=== PATIENT | female | born 1970 | race Caucasian/White ===

== ENCOUNTER → 2016-07-02 | Outpatient (CLI) | payer BC ==
[~2016-07-02] MED LIST: ACETAMINOPHEN-1 EAC1 PO; DIOVAN 80 MG TA80 M1 PO; LIPITOR 20 MG T20 M1 PO; NORCO 5-325 TA1 EACH PO; ZOLOFT25 MG PO
== END ==
LOC: RAD 14:17
DX: N63 Unspecified lump in breast (principal); M79.89 Other specified soft tissue disorders

== ENCOUNTER → 2017-08-18 | Outpatient (CLI) | payer BC ==
[~2017-08-18] MED LIST changes: +DIOVAN160 MG PO; +LUNESTA2 MG PO; +MEDROLDOSEPACK PO; +VITAMIN D1000 UNI2 PO
== END ==
LOC: RAD 10:37
DX: Z12.31 Encounter for screening mammogram for malignant neoplasm of breast (principal)

== ENCOUNTER → 2018-03-07 | Outpatient (CLI) | payer BC ==
[~2018-03-07] MED LIST changes: -DIOVAN160 MG PO; -LUNESTA2 MG PO; -MEDROLDOSEPACK PO; -VITAMIN D1000 UNI2 PO
== END ==
LOC: RAD 14:02
DX: M53.3 Sacrococcygeal disorders, not elsewhere classified (principal); I10 Essential (primary) hypertension

== ENCOUNTER → 2018-03-10 | Outpatient (CLI) | payer BC | LOC: ULTRA 15:26 | DX: N88.8 Other specified noninflammatory disorders of cervix uteri (principal); I10 Essential (primary) hypertension ==

== ENCOUNTER → 2018-04-08 | Outpatient (CLI) | payer BC ==
[~2018-04-08] VITALS: Ht 152.4 cm; Wt 95.3 kg
[~2018-04-08] MED LIST changes: +DIOVAN160 MG PO; +LUNESTA2 MG PO; +MEDROLDOSEPACK PO; +VITAMIN D1000 UNI2 PO
--- NOTE | ~2018-04-08 | HPC ---
[facility] [address] [place] [address] PAIN MANAGEMENT CONSULTATION Name: LEE ANN IBARRA Danitza Room #: REG [facility] [id number] Admission: 04/08/18 Attend Phys: Angelica Villa MD Discharge: Date of : 68 Report #: [id number] THIS REPORT FOR: //name// CC: Breann Villa DATE OF SERVICE: 04/08/2018 CHIEF COMPLAINT: Back pain and tailbone pain. HISTORY OF PRESENT ILLNESS: The patient is a 47-year-old female who has been referred to the pain clinic for evaluation of back and coccyx pain. She has been experiencing pain in her lower back as well as some pain in her hips. Feels that there is some discomfort in the tailbone area. She has a sensation of tightness in the low back area. Has been unable to exercise to the level that she would like. Feels that she has gained about 40 pounds. She was in the process of trying to lose weight. She was in a class where she rode a bicycle (spinning). After these class, she noticed some worsening of her pain in her back, hips and the tailbone area. Describes it now as constant, sharp, aching and tender. Rates it as a 6/10. Pain is exacerbated when she sits particularly on a bicycle seat. Notes that sometimes it improves with medication as well as with a cold pack in the low back area. She denies any overt fall or trauma to this area. ALLERGIES: TRAMADOL, SULFA, TRAZODONE, LISINOPRIL CAUSES COUGH, SULFA ANTIBIOTICS CAUSE A RASH; TRAMADOL, RAPID HEARTBEAT; TRAZODONE, RAPID HEARTBEAT. CURRENT MEDICATIONS: Hydrocodone 5/325, Tylenol with Codeine No. 3, Zoloft 25 mg, Lipitor 20 mg, valsartan 80 mg b.i.d. PAST MEDICAL HISTORY: Depression, hypertension, hypercholesterolemia, seasonal allergic rhinitis, coccyalgia, emotional problems/anxiety. PAST SURGICAL HISTORY: Breast reduction, colposcopy; cyst removal, right breast; dilation and curettage of uterus, endometrial ablation, reduction mammoplasty. SOCIAL HISTORY: She is . Works as a preschool associate teacher. LABORATORY DATA: X-ray sacrococcygeal 3 views, 03/07/2018. Indication, coccygeal pain x 6 months. The sacroiliac joints are intact. The sacroiliac area is nondisplaced. No displacement fractures are noted. No acute bony abnormality of the sacrum or coccygeal is seen. X-ray, lumbar 4 views dated 04/08/2018. Radiologic exam of lumbar spine completed with obliques. Indication, [place] [address] PAIN MANAGEMENT CONSULTATION Name: LEE ANN IBARRA Room #: REG [id number] Admission: 04/08/18 Attend Phys: Angelica Villa MD Discharge: Date of : 68 Report #: [id number] FINDINGS: The alignment is normal. Vertebral body heights are maintained. Mild narrowing of the disk space is seen at L2-L3 with some mild endplate spurring. Mild endplate spurring is noted, L4. Other disks are maintained. There is no acute bony abnormality. Facets aligned normally. Mild degenerative changes, L2/L3. PAIN CLINIC ASSESSMENT AND PQRS: 1. History of osteoarthritis. The patient is not being treated for osteoarthritis or rheumatoid arthritis. 2. Height 5 feet 0 inches, weight 210 pounds, BMI is 41.0. 3. Vital Signs: Blood pressure 137/80, pulse 85, respiratory rate 16, room air saturation 98%. 4. Pain intensity 11/14. 5. Fall risk. The patient has not fallen in the last 3 months. 6. Blood thinner. The patient is not on a blood thinning medication. 7. Hypertension. The patient is being treated for hypertension. 8. Opioids greater than 6 weeks. The patient is not on an opioid medication greater than 6 weeks. 9. Risk assessment tool, low for opioid use. 10. Functional assessment tool 40/70. 11. Recreational drug use. The patient denies use of recreational drugs. 12. Tobacco: The patient is a former smoker, smoked 20 years. 13. Alcohol. The patient drinks 2-3 alcoholic beverages per week. PHYSICAL EXAMINATION: GENERAL: The patient is a well-developed, well-nourished white female. Appears her stated age. She is alert and oriented x 3. Affect is appropriate. Speech is fluent. HEENT: Normocephalic, atraumatic. Extraocular eye muscles intact. Sclerae nonicteric. Mucous membranes are moist. The patient is slightly obese. HEART: Regular rate. S1, S2. LUNGS: Clear to auscultation. ABDOMEN: Nontender. Bowel sounds present. EXTREMITIES: Upper extremity muscle strength is judged to be 5/5 for the major muscle groups in the upper extremity. Deep tendon reflexes are +2 for the biceps bilaterally, absent triceps and brachioradialis. Deep tendon reflexes at the knees are +3. Ankles are +1. Muscle strength to the lower extremity judged to be 5/5 for the major muscle groups in the lower extremity. The patient has some pain and discomfort in the mid back area at approximately L3 through the dorsum of her sacrum. Forward bending to 70 degrees cause some back discomfort. Lumbar extension, left and right lateral bending, left and the right lateral rotation cause some low back discomfort. The patient is able to walk on her heels and toes. Notices some increased discomfort when she sits on the coccyx area. IMPRESSION: [facility] [address] [place] [address] PAIN MANAGEMENT CONSULTATION Name: LEE ANN IBARRA Room #: REG [facility] Cory#: [id number] Admission: 04/08/18 Attend Phys: Angelica Villa MD Discharge: Date of : 68 Report #: [id number] 1. Sacral pain - coccyalgia. 2. Depression. 3. Hypertension. 4. Hypercholesterolemia. 5. Seasonal allergic rhinitis. 6. Coccyalgia. 7. Emotional problems/anxiety. RECOMMENDATIONS: We discussed treatment options with the patient. We have explained that sometimes injections with local anesthetic and steroid can be helpful with coccygeal pain and discomfort. The other option is a more conservative approach where the patient will undergo physical therapy and try a course of Medrol Dosepak. A script for Medrol Dosepak has been written. The patient has been given a script to go to physical therapy. If her pain persists, she will return to the pain clinic at which time she will then undergo an injection in the coccyx area to help control her pain. We would like to thank you for letting us participate in her care. We hope she continues to improve. By: [id number] MD DENNIS Garcia
[2018-04-08 09:32] VITALS: BP 137/80
== END ==
LOC: PAIN 06:47
DX: M53.3 Sacrococcygeal disorders, not elsewhere classified (principal); M54.5 Low back pain; F32.9 Major depressive disorder, single episode, unspecified; I10 Essential (primary) hypertension; E78.00 Pure hypercholesterolemia, unspecified; F41.8 Other specified anxiety disorders; J30.2 Other seasonal allergic rhinitis

== ENCOUNTER → 2018-04-27 | Outpatient (CLI) | payer BC ==
[2018-04-22 10:05] VITALS: BP 132/88
[~2018-04-27] VITALS: Ht 152.4 cm; Wt 95.7 kg
[~2018-04-27] MED LIST changes: +ALEVE220 MG PO; +MOBIC15 MG PO
[2018-04-27 10:33] VITALS: BP 121/78
== END ==
LOC: PAIN 04-22 07:23
DX: M54.5 Low back pain (principal); M25.551 Pain in right hip; M25.552 Pain in left hip; Z79.899 Other long term (current) drug therapy; Z87.891 Personal history of nicotine dependence; Z72.89 Other problems related to lifestyle

== ENCOUNTER → 2018-05-11 | Outpatient (CLI) | payer BC ==
[~2018-05-11] VITALS: Ht 152.4 cm; Wt 96.9 kg
[2018-05-11 08:28] VITALS: BP 122/67
== END | disposition home or self-care (01) ==
LOC: PAIN 08:12
DX: M54.16 Radiculopathy, lumbar region (principal); Z87.891 Personal history of nicotine dependence; Z88.2 Allergy status to sulfonamides; Z88.8 Allergy status to other drugs, medicaments and biological substances; Z79.899 Other long term (current) drug therapy

== ENCOUNTER → 2021-04-29 | Outpatient (CLI) | payer BC, OTHER | LOC: RAD 10:49 | PROVIDERS: ATTEND Nurse Practitioner | DX: Z12.31 Encounter for screening mammogram for malignant neoplasm of breast (principal); N64.89 Other specified disorders of breast ==